=== PATIENT | male | born 1940 | race Caucasian/White ===

== ENCOUNTER → 2017-12-29 | Outpatient (CLI) | payer MEDICARE, OTHER ==
[~2017-12-29] MED LIST: Cipro500 MG PO; DOXY100 PO; LEVCAR2510; METR500 PO; NYST100TC TOP; PRAM.5; RIFA300 PO; ROCEPHIN IV; TAMS.4ER PO
[2017-12-29 18:01] LABS: BASOPHILS ABSOLUTE AUTO 0.03 K/mm3 (0.00-0.23); BASOPHILS PERCENT AUTO 1 % (0-2); EOSINOPHILS ABSOLUTE AUTO 0.05 K/mm3 (0.00-0.68); EOSINOPHILS PERCENT AUTO 1 % (0-6); Hematocrit 41.7 % (37.0-53.0); Hemoglobin 13.7 g/dL (13.5-17.5); IMMATURE GRAN ABSOLUTE AUTO 0.02 K/mm3 (0.00-0.10); IMMATURE GRAN PERCENT AUTO 0 % (0-1); LYMPHOCYTES ABSOLUTE AUTO 1.39 K/mm3 (0.84-5.20); LYMPHOCYTES PERCENT AUTO 24 % (21-46); MONOCYTES ABSOLUTE AUTO 0.45 K/mm3 (0.16-1.47); MONOCYTES PERCENT AUTO 8 % (4-13); Mean Corpuscular HGB Conc 32.9 g/dL (31.5-36.5); Mean Corpuscular Volume 91 fL (80-100); Mean Platelet Volume 9.9 fL (9.1-12.4); NEUTROPHILS ABSOLUTE AUTO 3.93 K/mm3 (1.96-9.15); NEUTROPHILS PERCENT AUTO 67 % (41-73); Platelet Count 254 K/mm3 (150-400); RDW Coefficient Variation 12.9 % (11.7-14.2); Red Blood Cell Count 4.57 M/mm3 (4.30-5.90); White Blood Cell Count 5.87 K/mm3 (4.00-11.30)
[2017-12-29 19:56] LABS: Alanine Aminotransfer (ALT/SGP 9 U/L (12-78); Albumin, Blood 3.7 g/dL (3.4-5.0); Albumin/Globulin Ratio 1.3 (0.8-1.8); Alk Phos 50 U/L (50-136); Anion Gap 10 mmol/L (6-16); Aspartate Aminotrans (AST/SGOT 17 U/L (12-37); Bilirubin, Total 0.8 mg/dL (0.1-1.0); Blood Urea Nitrogen 14 mg/dL (8-24); Bun/Creatinine Ratio 15.7 (12.0-20.0); CO2, Blood 27 mmol/L (21-32); Calcium, Blood 9.4 mg/dL (8.5-10.1); Chloride, Blood 104 mmol/L (98-108); Creatinine, Blood 0.89 mg/dL (0.60-1.20); Globulin, Blood 2.9 g/dL (2.2-4.0); Glomerular Filtration Rate >60 (60-); Glucose, Blood 128 mg/dL (70-99); Potassium, Blood 4.2 mmol/L (3.5-5.5); Sodium, Blood 141 mmol/L (136-145); Total Protein, Blood 6.6 g/dL (6.4-8.2)
[2017-12-29 20:12] LABS: Free Thyroxine 1.17 ng/dL (0.70-1.60); Thyroid Stimulating Hormone 3.9 uIU/mL (0.360-4.800)
== END | disposition home or self-care (01) ==
LOC: LAB SHORT 15:30 → LAB 15:30
PROVIDERS: Nurse Practitioner Adult Health
DX: E03.9 Hypothyroidism, unspecified (principal); G20 Parkinson's disease; Z73.6 Limitation of activities due to disability
CPT/HCPCS: 80053; 84439; 84443; 85025

== ENCOUNTER → 2019-08-02 | Outpatient (CLI) | payer MEDICARE, OTHER ==
[2019-08-02 18:06] LABS: BASOPHILS ABSOLUTE AUTO 0.02 K/mm3 (0.00-0.23); BASOPHILS PERCENT AUTO 0 % (0-2); EOSINOPHILS ABSOLUTE AUTO 0.04 K/mm3 (0.00-0.68); EOSINOPHILS PERCENT AUTO 1 % (0-6); Hematocrit 44.5 % (37.0-53.0); Hemoglobin 14.3 g/dL (13.5-17.5); IMMATURE GRAN ABSOLUTE AUTO 0.01 K/mm3 (0.00-0.10); IMMATURE GRAN PERCENT AUTO 0 % (0-1); LYMPHOCYTES PERCENT AUTO 29 % (21-46); MONOCYTES ABSOLUTE AUTO 0.66 K/mm3 (0.16-1.47); MONOCYTES PERCENT AUTO 11 % (4-13); Mean Corpuscular HGB 31.2 pg (26.0-34.0); Mean Corpuscular HGB Conc 32.1 g/dL (31.5-36.5); Mean Corpuscular Volume 97 fL (80-100); Mean Platelet Volume 10.3 fL (9.1-12.4); NEUTROPHILS ABSOLUTE AUTO 3.52 K/mm3 (1.96-9.15); NEUTROPHILS PERCENT AUTO 59 % (41-73); Platelet Count 264 K/mm3 (150-400); RDW Standard Deviation 45.7 fL (35.1-46.3); Red Blood Cell Count 4.58 M/mm3 (4.30-5.90); White Blood Cell Count 5.95 K/mm3 (4.00-11.30)
[2019-08-02 19:29] LABS: Alanine Aminotransfer (ALT/SGP 11 U/L (12-78); Albumin/Globulin Ratio 1.1 (0.8-1.8); Alk Phos 60 U/L (50-136); Anion Gap 6 mmol/L (6-16); Aspartate Aminotrans (AST/SGOT 21 U/L (12-37); Bilirubin, Total 0.9 mg/dL (0.1-1.0); Blood Urea Nitrogen 12 mg/dL (8-24); Bun/Creatinine Ratio 15.4 (12.0-20.0); CO2, Blood 27 mmol/L (21-32); Calcium, Blood 9.4 mg/dL (8.5-10.1); Chloride, Blood 100 mmol/L (98-108); Creatinine, Blood 0.78 mg/dL (0.60-1.20); Globulin, Blood 3.6 g/dL (2.2-4.0); Glomerular Filtration Rate >60 (60-); Glucose, Blood 85 mg/dL (70-99); Potassium, Blood 4.1 mmol/L (3.5-5.5); Sodium, Blood 133 mmol/L (136-145); Total Protein, Blood 7.6 g/dL (6.4-8.2)
== END | disposition home or self-care (01) ==
LOC: LAB 16:43 → LAB SHORT 16:43
PROVIDERS: Nurse Practitioner Family
DX: G20 Parkinson's disease (principal); E03.9 Hypothyroidism, unspecified; N40.0 Benign prostatic hyperplasia without lower urinary tract symptoms
CPT/HCPCS: 80053; 84153; 84439; 84443; 85025

== ENCOUNTER 2020-04-25 11:26 | Inpatient (IN) | payer MEDICARE, OTHER ==
[~2020-04-25] VITALS: Ht 182.9 cm; Wt 72.8 kg
[~2020-04-25 11:26] MED LIST changes: -LEVCAR2510; +SINEMET 25-1001 EAC1 PO
[2020-04-25 11:57] LABS: BASOPHILS ABSOLUTE AUTO 0.01 K/mm3 (0.00-0.23); BASOPHILS PERCENT AUTO 0 % (0-2); EOSINOPHILS PERCENT AUTO 0 % (0-6); Hematocrit 45.8 % (37.0-53.0); Hemoglobin 14.9 g/dL (13.5-17.5); IMMATURE GRAN ABSOLUTE AUTO 0.03 K/mm3 (0.00-0.10); IMMATURE GRAN PERCENT AUTO 0 % (0-1); LYMPHOCYTES ABSOLUTE AUTO 1.16 K/mm3 (0.84-5.20); LYMPHOCYTES PERCENT AUTO 17 % (21-46); MONOCYTES ABSOLUTE AUTO 0.67 K/mm3 (0.16-1.47); MONOCYTES PERCENT AUTO 10 % (4-13); Mean Corpuscular HGB 29.9 pg (26.0-34.0); Mean Corpuscular HGB Conc 32.5 g/dL (31.5-36.5); Mean Corpuscular Volume 92 fL (80-100); Mean Platelet Volume 9.8 fL (9.1-12.4); NEUTROPHILS ABSOLUTE AUTO 5.03 K/mm3 (1.96-9.15); NEUTROPHILS PERCENT AUTO 73 % (41-73); Platelet Count 253 K/mm3 (150-400); RDW Coefficient Variation 12.9 % (11.7-14.2); RDW Standard Deviation 43.6 fL (35.1-46.3); Red Blood Cell Count 4.99 M/mm3 (4.30-5.90)
[2020-04-25 12:11] LABS: Alanine Aminotransfer (ALT/SGP 12 U/L (12-78); Albumin, Blood 3.4 g/dL (3.4-5.0); Albumin/Globulin Ratio 0.8 (0.8-1.8); Alk Phos 77 U/L (50-136); Anion Gap 9 mmol/L (6-16); Aspartate Aminotrans (AST/SGOT 54 U/L (12-37); Bilirubin, Total 0.7 mg/dL (0.1-1.0); Blood Urea Nitrogen 23 mg/dL (8-24); Bun/Creatinine Ratio 31.5 (12.0-20.0); CO2, Blood 24 mmol/L (21-32); Calcium, Blood 9.5 mg/dL (8.5-10.1); Chloride, Blood 108 mmol/L (98-108); Creatinine, Blood 0.73 mg/dL (0.60-1.20); Globulin, Blood 4.2 g/dL (2.2-4.0); Glomerular Filtration Rate >60 (60-); Glucose, Blood 96 mg/dL (70-99); Potassium, Blood 4.1 mmol/L (3.5-5.5); Sodium, Blood 141 mmol/L (136-145); Total Protein, Blood 7.6 g/dL (6.4-8.2)
[2020-04-25] MEDS ORDERED: EUTHYROX50 MCG PT (12:53)
[2020-04-25] MEDS ORDERED: PRAM.5 PT (12:54)
[2020-04-25 15:25] LABS: Source, Urine Catheter
[2020-04-25 15:52] LABS: Appearance, Urine Turbid (Clear); Bilirubin, Urine Neg (Neg); Blood, Urine 5+ (Neg); Color, Urine Amber (P-Yellow); Glucose Qualitative, Urine Neg (Neg); Ketones, Urine 4+ (Neg); Leukocyte Esterase, Urine 3+ (Neg); Nitrite, Urine Pos (Neg); Protein, Urine 4+ (Neg); Specific Gravity, Urine 1.025 (1.003-1.022); Urobilinogen, Urine 1+ (Normal)
[2020-04-25 16:02] LABS: Mucus Light (0-Heavy); Red Blood Cells, Urine TNTC /hpf (0-2); White Blood Cells, Urine TNTC /hpf (0-5)
[2020-04-25 16:03] LABS: Bacteria Many /hpf; Squamous Epithelial Cells Few /hpf (Few)
[2020-04-25] MEDS ORDERED: CARBIDOPA-LEVO1 EA17 PO (17:27)
[2020-04-25] MEDS ORDERED: CARBIDOPA-LEVO1 EA15 PO (17:28)
--- NOTE | 2020-04-25 18:56 | NUR ---
REPORT TAKEN FROM LUCY ALFARO RN IN THE ED. SHIFT REPORT THEN PROVIDED TO MUKUND GARCIA ON MEDICAL FLOOR @ SHIFT CHANGE PRIOR TO PT ARRIVAL. HELPED PT GET SITUATED IN ROOM WHILE KETAN FINISHED RECIEVING SHIFT REPORTS.
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
--- NOTE | 2020-04-26 03:35 | NUR ---
SHIFT SUMMARY HAS BEEN RESTING QUIETLY, WITH SON IN ROOM. NG TUBE IN USE, WITH CONTINUOUS TUBE FEEDING AND WATER FLUSHES - SEE DOC FLOW SHEETS. RECEIVING MEDICATION VIA NG TUBE ABOUT EVERY 3 HRS - SEE MAR FOR DETAILS. HOB ELEVATED FOR ASPIRATION PRECAUTIONS. REPOSITOINED EVERY 2 HRS. CALL LIGHT IN REACH/ SON WAS INSTRUCTED ON HOW TO USE IT. ISOLATION PREACUTIONS MAINTAINED.
[2020-04-26 05:41] LABS: BASOPHILS ABSOLUTE AUTO 0.01 K/mm3 (0.00-0.23); BASOPHILS PERCENT AUTO 0 % (0-2); EOSINOPHILS ABSOLUTE AUTO 0.01 K/mm3 (0.00-0.68); EOSINOPHILS PERCENT AUTO 0 % (0-6); Hematocrit 43.8 % (37.0-53.0); Hemoglobin 14.5 g/dL (13.5-17.5); IMMATURE GRAN ABSOLUTE AUTO 0.03 K/mm3 (0.00-0.10); IMMATURE GRAN PERCENT AUTO 1 % (0-1); LYMPHOCYTES ABSOLUTE AUTO 0.83 K/mm3 (0.84-5.20); LYMPHOCYTES PERCENT AUTO 14 % (21-46); MONOCYTES ABSOLUTE AUTO 0.62 K/mm3 (0.16-1.47); MONOCYTES PERCENT AUTO 11 % (4-13); Mean Corpuscular HGB 30.3 pg (26.0-34.0); Mean Corpuscular HGB Conc 33.1 g/dL (31.5-36.5); Mean Corpuscular Volume 92 fL (80-100); Mean Platelet Volume 9.8 fL (9.1-12.4); NEUTROPHILS ABSOLUTE AUTO 4.39 K/mm3 (1.96-9.15); NEUTROPHILS PERCENT AUTO 75 % (41-73); Platelet Count 237 K/mm3 (150-400); RDW Coefficient Variation 12.9 % (11.7-14.2); RDW Standard Deviation 43.7 fL (35.1-46.3); Red Blood Cell Count 4.78 M/mm3 (4.30-5.90); White Blood Cell Count 5.89 K/mm3 (4.00-11.30)
[2020-04-26 06:03] LABS: Anion Gap 8 mmol/L (6-16); Blood Urea Nitrogen 24 mg/dL (8-24); Bun/Creatinine Ratio 37.9 (12.0-20.0); CO2, Blood 24 mmol/L (21-32); Calcium, Blood 9.3 mg/dL (8.5-10.1); Chloride, Blood 106 mmol/L (98-108); Creatinine, Blood 0.63 mg/dL (0.60-1.20); Glomerular Filtration Rate >60 (60-); Glucose, Blood 119 mg/dL (70-99); Phosphorus, Blood 2.8 mg/dL (2.5-4.9); Potassium, Blood 3.6 mmol/L (3.5-5.5); Sodium, Blood 138 mmol/L (136-145)
[2020-04-26] MEDS ORDERED: CARBLEV25 PT (07:27)
--- NOTE | 2020-04-26 10:07 | NUR ---
TUBE FEED INCREASED TO 40ML/HR, WILL ADJUST TO GOAL RATE OF 50ML/HR IN 8 HOURS IF PT TOLERATES. H20 RUNNING AT 30ML Q4H AT THIS TIME.
--- NOTE | 2020-04-26 17:50 | NUR ---
SHIFT SUMMARY PT HAS BEEN RESTING T/O SHIFT AND NONAROUSABLE. TREMOR SEEMS TO BE WORSE THE DAY GOES ON. NG TUBE IS INSERTED WITH CONTINUOUS TUBE FEEDINGS GOING AT 50 ML/HR WITH 30 CC FLUSHES Q4H. MEDS ARE ADMINISTERED THROUGH TUBE. PT WAS BEGINNING TO COUGH UP SOME PHLEGM @ 1800 AND REQUIRED SUCTION, PT DID START TO BECOME ARROUSED AT THIS TIME. TREMOR ALSO WAS LESS NOTICEABLE AT THIS TIME WELL. SON IS AT BED SIDE AND INSTRUCTED ON HOW TO USE CALL LIGHT. PROVIDER IS WATCHING BP. PT IS NOT TYPICALLY ON BP MEDICATIONS AND SHE SUSPECTS WITH THE TREMOR THAT WE ARE GETTING AN INACCURATE READING.
--- NOTE | 2020-04-27 01:11 | NUR ---
PTS SON AT SIDE FOR NIGHT AND VERY SUPPORTIVE.
--- NOTE | 2020-04-27 02:48 | NUR ---
0215 PT GIVEN SCHEDULED MEDS VIA NGT TUBE WITH 20ML RESIDUAL; PT NOTICED HAVE AUDIBLE GURGLING NOISE UPPER THROAT; PT SUCTIONED LARGE AMOUNT THICK YELLOW MUCOUS; PT NON RESPONSIVE; VITAL SIGNS STABLE; JEVITY TUBE FEEDING TURNED OFF AND IV RATE SLOWED TO 25ML/HR; SUKHI VOGEL, RN, CHARGE NURSE AT SIDE; PT RESTING HIGH FOWLERS. 0240 DR BALES NOTIFIED ALL THE ABOVE; ORDERS RECEIVED TO TURN OFF JEVITY FEEDING NOW AND PORTABLE CXR ONE VIEW STAT. 0250 XR AT SIDE.
--- NOTE | 2020-04-27 03:12 | NUR ---
SHIFT SUMMARY: 79 Y/O MALE HAD RESTLESS SHIFT AT TIMES; PTS JEVITY TUBE FEEDING VIA NGT WAS SHUT DOWN 214 AFTER PT STARTED HAVING LOUD THROAT GURGLING AND LARGE AMOUNT YELLOW THICK PHELGM VIA SUCTION; DR BALES WAS NOTIFIED AND PORTABLE CXR WAS PERFORMED; PT SON--BLANKA AT SIDE AND WAS INFORMED THIS NURSE ASSESSMENT AND UPDATED ON DADS CURRENT HEALTH SITUATION; PT IS FULL CODE; PT HAD LESS THAN 20ML RESIDUAL NOTED AT 214; PT IS NON RESPONSIVE AND NON VERBAL; FRIEND INTACT CLEAR YELLOW FLUID; BED IN SEMI FOWLERS POSITION; BED ALARM APPLIED, BED LOW POSITION WITH CALL LIGHT AT SIDE.
[2020-04-27 05:24] LABS: BASOPHILS ABSOLUTE AUTO 0.01 K/mm3 (0.00-0.23); BASOPHILS PERCENT AUTO 0 % (0-2); EOSINOPHILS PERCENT AUTO 0 % (0-6); Hematocrit 42.7 % (37.0-53.0); Hemoglobin 13.5 g/dL (13.5-17.5); IMMATURE GRAN ABSOLUTE AUTO 0.02 K/mm3 (0.00-0.10); IMMATURE GRAN PERCENT AUTO 0 % (0-1); LYMPHOCYTES ABSOLUTE AUTO 1.12 K/mm3 (0.84-5.20); LYMPHOCYTES PERCENT AUTO 17 % (21-46); MONOCYTES ABSOLUTE AUTO 0.57 K/mm3 (0.16-1.47); MONOCYTES PERCENT AUTO 9 % (4-13); Mean Corpuscular HGB 29.2 pg (26.0-34.0); Mean Corpuscular HGB Conc 31.6 g/dL (31.5-36.5); Mean Corpuscular Volume 92 fL (80-100); Mean Platelet Volume 9.9 fL (9.1-12.4); NEUTROPHILS ABSOLUTE AUTO 4.72 K/mm3 (1.96-9.15); NEUTROPHILS PERCENT AUTO 73 % (41-73); Platelet Count 237 K/mm3 (150-400); RDW Standard Deviation 43.9 fL (35.1-46.3); Red Blood Cell Count 4.63 M/mm3 (4.30-5.90); White Blood Cell Count 6.44 K/mm3 (4.00-11.30)
[2020-04-27 05:54] LABS: Albumin, Blood 2.7 g/dL (3.4-5.0); Anion Gap 8 mmol/L (6-16); Blood Urea Nitrogen 23 mg/dL (8-24); Bun/Creatinine Ratio 45.5 (12.0-20.0); CO2, Blood 23 mmol/L (21-32); Calcium, Blood 8.7 mg/dL (8.5-10.1); Chloride, Blood 110 mmol/L (98-108); Creatinine, Blood 0.51 mg/dL (0.60-1.20); Glomerular Filtration Rate >60 (60-); Glucose, Blood 118 mg/dL (70-99); Magnesium, Blood 1.8 mg/dL (1.6-2.4); Phosphorus, Blood 2.2 mg/dL (2.5-4.9); Potassium, Blood 3.5 mmol/L (3.5-5.5); Sodium, Blood 141 mmol/L (136-145)
--- NOTE | 2020-04-27 19:15 | NUR ---
SHIFT SUMMARY VICENTE WAS MUCH MORE SLEEPY THIS MORNING, BUT WOKE UP A LOT MORE AROUND LUNCH. OPENED EYES, ANSWERED QUESTIONS, THOUGH THIS WAS VERY DIFFICULT TO UNDERSTAND DUE TO SLURRED SPEECH. SON AT BEDSIDE ALL DAY. HAD TWO BM THIS SHIFT (INCONTINENT). SAW JOB HONER BUT NOT ABLE TO GET HIM ON A PO DIET. SOME GURGLING AT THE BACK OF HIS THROAT, VP ANALYSIS ABLE TO USE YANKAUR FOR SUCTION, BUT HE DECLINED FOR ME. CRUSHED PILLS AND PUT IN NGT, CONTINUOUS TF RUNNING SINCE 9AM. FRIEND DRAINING WELL, Q2 TURNS PERFORMED. DENIED PAIN.
[2020-04-28 02:41] LABS: Albumin, Blood 2.6 g/dL (3.4-5.0); Anion Gap 2 mmol/L (6-16); Blood Urea Nitrogen 21 mg/dL (8-24); Bun/Creatinine Ratio 42.6 (12.0-20.0); CO2, Blood 31 mmol/L (21-32); Chloride, Blood 110 mmol/L (98-108); Creatinine, Blood 0.49 mg/dL (0.60-1.20); Glomerular Filtration Rate >60 (60-); Glucose, Blood 121 mg/dL (70-99); Phosphorus, Blood 2.5 mg/dL (2.5-4.9); Potassium, Blood 3.8 mmol/L (3.5-5.5); Sodium, Blood 143 mmol/L (136-145); Vancomycin, Trough 9.4 ug/mL (5.0-10.0)
--- NOTE | 2020-04-28 04:54 | NUR ---
SHIFT SUMMARY ADMITTED FOR LOCKED IN SYNDROME. FULL CODE. PLAN IS FOR REMOVAL OF NG TUBE WHEN CAN TOLERATE ORAL FEEDINGS, THEN DC HOME. CHRONIC FRIEND FOR RETENTION. CARBIDOPA/LEVIDOPA GIVEN Q3 HRS. FAILED SWALLOW EVAL, NPO, NG TUBE FOR MEDS AND FEEDINGS. 2 LOOSE BM'S YESTERDAY, BOWEL CARE HELD. INCONTINENT, ATTENDS IN PLACE. WALKS W/FWW AT BASELINE. COMMUNICATES WITH FAMILY AT BASELINE. ONE WORD MUMBLED ANSWERS THIS SHIFT, STILL NOT TO BASELINE MENTALLY. CONTINUOUS TUBE FEEDING, NS INFUSING @ 50ML/HR. IV ANTIBIOTICS SCHEDULED FOR UTI.
--- NOTE | 2020-04-28 10:00 | NUR ---
INFORMED DR MOTT OF BP OF 160/100, HE SAYS HE WILL ORDER BP MEDS
--- NOTE | 2020-04-28 19:13 | NUR ---
AWAKE IN BED, WITH WIEF AND SON AT BEDSIDE. SITTING UP, SMILING AND MAKES A FEW STATEMENTS. NG TUBE IN USE - TUBE FEEDING AT 50 ML/HR. CALL LIGHT IN REACH
--- NOTE | 2020-04-28 19:25 | NUR ---
SHIFT SUMMARY AL GOT UP WITH AO2 TO CHAIR TODAY WITH PT. NGT RUNNING AT 50ML/HR WITH WATER FLUSHES SCHEDULED, NO RESIDUALS AT ALL TODAY. FRIEND DRAINING WELL. AND SON VISITED. 1 INCONTINENT BM TODAY, ONE BM ON BED DALE. HOB MAINTAINED AT 30 DEGREES FOR TF. SAW SPEECH, THEY WILL ASSESS AGAIN TOMORROW, BUT NOT CLEARED FOR ANY PO THIS SHIFT. SUCTIONED OUT SECRETIONS, PT CAN COUGH UP BUT CANNOT SPIT OUT/SWALLOW. DENIED PAIN. MEDS CRUSHED IN TUBE. REPORT GIVEN TO NIGHT NURSE
[2020-04-29 02:18] LABS: Vancomycin, Trough 14.8 ug/mL (5.0-10.0)
--- NOTE | 2020-04-29 03:01 | NUR ---
SHIFT SUMMARY WAS MORE INTERACTIVE WITH STAFF AT SHIFT COMMENCE, BUT LATER, SEEMED ANNOYED WITH STAFF, WANTING TO "LEAVE". SON AT BEDSIDE VOICED PT HAS HX OF THIS BEHAVIOR - POSSIBLY DUE TO MEDS TAKEN. LATER PT SEEMED TO CALM AND WAS MORE RECEPTIVE TO CARE. TUBE FEEDING CONTINUES WITH INTERMITTENT H2O FLUSHES. IVF OF NS AT 50 ML AND ANTIBIOTICS ORDERED -SEE MAR FOR DETAILS. CALL LIGHT IN REACH. SON REMAINS IN ROOM.
--- NOTE | 2020-04-29 17:39 | NUR ---
SUMMARY PT SITTING UP IN BED, VISITING WITH HIS SPOUSE, PT MORE AWAKE AND ALERT THIS EVENING, ABLE TO ANSWER SIMPLE QUESTIONS APPROPRIATELY, SPEECH IS VERY SOFT AND SOMETIMES DIFFICULT TO UNDERSTAND, SON WAS IN TO VISIT AND ASSIST WITH HIS CARE EARLIER IN THE DAY, PT REMAINS ON TUBE FEEDING, IS TOLERATING WELL, PT NOW ABLE TO SUCTION SELF WHEN GIVEN THE YANKHAUER, PT WORKED WITH PHYSICAL THERAPY, TRAVIS WELL, VSS, WILL CONT TO MONITOR
--- NOTE | 2020-04-29 21:12 | NUR ---
AWAKE AND SHAKING (PARKINSONS S/S), TUBE FEEDING CONTINUSE PER MD ORDERS AT 50 CC/HR WITH WATER FLUSHES. SEEMED TENSE AND BECAME AGITATED WHEN ASSESSED. SON WAS IN ROOM, AND CALMED PT. SON STAED PT HAD SOME REST IN THE DAY TIME AND WAS PROBABLY ETTING TIRED AGAIN. CALL LIGHT IN REACH
[2020-04-30 05:36] LABS: Hematocrit 42.8 % (37.0-53.0); Hemoglobin 14.1 g/dL (13.5-17.5); Mean Corpuscular HGB 29.7 pg (26.0-34.0); Mean Corpuscular HGB Conc 32.9 g/dL (31.5-36.5); Mean Corpuscular Volume 90 fL (80-100); Mean Platelet Volume 9.7 fL (9.1-12.4); Platelet Count 228 K/mm3 (150-400); RDW Coefficient Variation 12.6 % (11.7-14.2); RDW Standard Deviation 41.9 fL (35.1-46.3); Red Blood Cell Count 4.74 M/mm3 (4.30-5.90)
--- NOTE | 2020-04-30 05:54 | NUR ---
SHIFT SUMMARY CONTINUES TO DISPLAY MORE ACTIVE BEHAVIOR - SHAKING OF ARMS, LIFTING OF LEFT ARM/HAND. NG TUBE PINNED TO PILLOW CASE TO KEEP OUT OF HIS REACH TO PREVENT HIS PULLING IT OUT. INTERMITTENT AGITATION AIMED AT STAFF FOR REPOSITIONING HIM, ADMINISTERING HIS MEDS, ETC. NG CONTINUOUS TUBE FEEDING WITH WATER BOLUS' PER MD ORDERS. FRIEND DRAINING ANA/YELLOW. HOB REMAINS ELEVATED OVER 30 DEGREES FOR ASPIRATION PRECAUTIONS. CALL LIGHT IN REACH. ANIKA CHAPAINS AT BEDSIDE FOR PT MORAL SUPPORT.
[2020-04-30 06:00] LABS: Anion Gap 10 mmol/L (6-16); Blood Urea Nitrogen 16 mg/dL (8-24); Bun/Creatinine Ratio 34.1 (12.0-20.0); CO2, Blood 25 mmol/L (21-32); Calcium, Blood 8.6 mg/dL (8.5-10.1); Chloride, Blood 108 mmol/L (98-108); Creatinine, Blood 0.47 mg/dL (0.60-1.20); Glomerular Filtration Rate >60 (60-); Glucose, Blood 122 mg/dL (70-99); Potassium, Blood 2.9 mmol/L (3.5-5.5); Sodium, Blood 143 mmol/L (136-145)
--- NOTE | 2020-04-30 17:18 | NUR ---
SUMMARY PT AWAKE IN BED, RESTLESS, VISITING WITH HIS SON, PT HAS SLEPT FOR MOST OF THE DAY, IS NOW AWAKE AND AGITATED, PT CONT TO GET TUBE FEEDING, TRAVIS WELL, VSS, WILL CONT TO MONITOR
--- NOTE | 2020-04-30 21:47 | NUR ---
HOB REMAINS ELEVATED OVER 40 DEGREES FOR ASPIRATION PRECAUTIONS. SUCTIONED AND ORAL CARE DONE. IVF OF NS AT 50 ML/HR AND TUBE FEEDING PER NG TUBE CONTINUES AT 50 ML/HR. SON AT BEDSIDE. REST ENCOURAGED. REPOSITIONED. CALL LIGHT IN REACH
[2020-05-01 02:01] LABS: Hematocrit 41.6 % (37.0-53.0); Hemoglobin 13.5 g/dL (13.5-17.5); Mean Corpuscular HGB 29.7 pg (26.0-34.0); Mean Corpuscular HGB Conc 32.5 g/dL (31.5-36.5); Mean Corpuscular Volume 92 fL (80-100); Mean Platelet Volume 9.5 fL (9.1-12.4); Platelet Count 297 K/mm3 (150-400); RDW Coefficient Variation 12.5 % (11.7-14.2); RDW Standard Deviation 42.3 fL (35.1-46.3); Red Blood Cell Count 4.54 M/mm3 (4.30-5.90); White Blood Cell Count 7.26 K/mm3 (4.00-11.30)
[2020-05-01 02:19] LABS: Vancomycin, Trough 16.8 ug/mL (5.0-10.0)
[2020-05-01 02:36] LABS: Albumin, Blood 2.4 g/dL (3.4-5.0); Anion Gap 4 mmol/L (6-16); Blood Urea Nitrogen 19 mg/dL (8-24); Bun/Creatinine Ratio 41.7 (12.0-20.0); CO2, Blood 30 mmol/L (21-32); Calcium, Blood 9.2 mg/dL (8.5-10.1); Chloride, Blood 106 mmol/L (98-108); Creatinine, Blood 0.46 mg/dL (0.60-1.20); Glomerular Filtration Rate >60 (60-); Glucose, Blood 124 mg/dL (70-99); Phosphorus, Blood 3.2 mg/dL (2.5-4.9); Sodium, Blood 140 mmol/L (136-145)
--- NOTE | 2020-05-01 05:29 | NUR ---
HAS BEEN RESTING QUIETLY AT INTERVALS SINCE HAVING HAD MELATONIN AT HS. TUBE FEEDING CONTINUES AT 50 ML/HR AND IVF OF NS CONTINUES AT 50 ML/HR WITH ANTIBIOTICS PER MD ORDERS - SEE MAR FOR DETAILS. CALL LIGHT IN REACH. SON AT BEDSIDE.
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
--- NOTE | 2020-05-02 04:35 | NUR ---
SHIFT SUMMARY ADMITTED FOR LOCKED IN SYNDROME. FULL CODE. PLAN IS PLACEMENT IN 2-3 DAYS POSSIBLY. NG TUBE IN PLACE, FEEDING JEVITY @ 55 ML/HR. NS INFUSING VIA IV @ 50 ML/HR. CHRONIC FRIEND IN FOR RETENTION. NPO, ALL MEDS VIA NG TUBE OR IV. CARBIDOPA/LEVIDOPA Q3 HRS. HX PARKINSONS/TREMORS. PT IS MORE ALERT THIS EVENING THAN ON MY PREVIOUS SHIFTS WITH HIM, HE ATTEMPTS TO VERBALIZE MORE. LIQUID BM'S YESTERDAY, BOWEL CARE HELD.
[2020-05-02 05:53] LABS: BASOPHILS ABSOLUTE AUTO 0.02 K/mm3 (0.00-0.23); BASOPHILS PERCENT AUTO 0 % (0-2); EOSINOPHILS ABSOLUTE AUTO 0.06 K/mm3 (0.00-0.68); EOSINOPHILS PERCENT AUTO 1 % (0-6); Hematocrit 43.1 % (37.0-53.0); Hemoglobin 13.8 g/dL (13.5-17.5); IMMATURE GRAN ABSOLUTE AUTO 0.05 K/mm3 (0.00-0.10); IMMATURE GRAN PERCENT AUTO 1 % (0-1); LYMPHOCYTES ABSOLUTE AUTO 1.21 K/mm3 (0.84-5.20); LYMPHOCYTES PERCENT AUTO 14 % (21-46); MONOCYTES ABSOLUTE AUTO 0.78 K/mm3 (0.16-1.47); MONOCYTES PERCENT AUTO 9 % (4-13); Mean Corpuscular HGB 29.2 pg (26.0-34.0); Mean Corpuscular Volume 91 fL (80-100); Mean Platelet Volume 10.2 fL (9.1-12.4); NEUTROPHILS ABSOLUTE AUTO 6.33 K/mm3 (1.96-9.15); NEUTROPHILS PERCENT AUTO 75 % (41-73); Platelet Count 359 K/mm3 (150-400); RDW Coefficient Variation 12.7 % (11.7-14.2); RDW Standard Deviation 42.9 fL (35.1-46.3); Red Blood Cell Count 4.73 M/mm3 (4.30-5.90); White Blood Cell Count 8.45 K/mm3 (4.00-11.30)
[2020-05-02 06:06] LABS: Anion Gap 6 mmol/L (6-16); Blood Urea Nitrogen 21 mg/dL (8-24); Bun/Creatinine Ratio 45.6 (12.0-20.0); CO2, Blood 29 mmol/L (21-32); Calcium, Blood 9.4 mg/dL (8.5-10.1); Chloride, Blood 107 mmol/L (98-108); Creatinine, Blood 0.46 mg/dL (0.60-1.20); Glomerular Filtration Rate >60 (60-); Glucose, Blood 149 mg/dL (70-99); Potassium, Blood 2.9 mmol/L (3.5-5.5); Sodium, Blood 142 mmol/L (136-145)
--- NOTE | 2020-05-02 18:05 | NUR ---
PT IS A/OX3, PLEASANT AND COOPERATIVE FOR MOST OF THE DAY, THIS EVENINING THE PT BECAME AGITATED AND PULLED HIS NGT PARTIALY OUT, A CHEST X-RAY WAS ORDERED TO CONFIRM PLACEMENT, THE PT SON HAS BEEN AT THE BEDSIDE FOR MOST OF THE DAY, THE PTS WAS IN TO VISIT, THE PHYSICAL AND THE OCCUPATIONAL THERAPIST WORKED WITH THE PT TODAY, THE PT HAD OVER 150 IN RESIDUAL THIS EVENING AT 1700, THE TUBE FEED WAS STOPPED AND WILL RECHECK IN 2 HRS, THE PT HAD 2 LARGE LOOSE BM'S TODAY AND PASSED GAS, CALL LIGHT IN REACH, PT IS CALM AT THIS TIME WILL CONTINUE TO MONITOR AND ASSESS FOR CHANGES
--- NOTE | 2020-05-03 04:40 | NUR ---
SHIFT SUMMARY ASSUMED CARE OF PT AT 1900. PT IS ALERT AND ORIENTED TO FAMILY. HEART SOUNDS REGULAR, LUNG SOUNDS ARE DIMINISHED. PT NG TUBE WAS XRAYED AND PLACEMENT COMFIRMED BY HOSPITALIST SADIQ. TUBE FEEDING WAS RESUMED AND PATIENT TOLERATED WELL BUT HAVING NO RESIDUAL AFTER BEING CHECKED BEFOPRE EACH MEDICATION ADMINISTRATION. PT ABD IS STILL DISTENDED AND FIRM. PT HAD INCONTINENT SMALL LOOSE GAMALIEL AND PASSED LOTS OF GAS. PT CATHETER IS DRAINING DARK URINE. PT SON IS IN ROOM WITH PATIENT. NO ACUTE EVENTS DURING THE NIGHT. PT DID NOT SLEEP VERY MUCH DURING THE NIGHT. CALL LIGHT IN REACH, BED IN LOWEST POSTION, WILL CONTINUE TO MONITOR UNTIL DAYSHIFT NURSE ARRIVES.
[2020-05-03 05:55] LABS: Anion Gap 5 mmol/L (6-16); Blood Urea Nitrogen 25 mg/dL (8-24); Bun/Creatinine Ratio 48.8 (12.0-20.0); CO2, Blood 31 mmol/L (21-32); Calcium, Blood 9.3 mg/dL (8.5-10.1); Chloride, Blood 104 mmol/L (98-108); Creatinine, Blood 0.51 mg/dL (0.60-1.20); Glomerular Filtration Rate >60 (60-); Glucose, Blood 119 mg/dL (70-99); Potassium, Blood 2.9 mmol/L (3.5-5.5); Sodium, Blood 140 mmol/L (136-145)
--- NOTE | 2020-05-03 15:51 | NUR ---
PT IS MORE ALERT TODAY COMPARED TO YESTERDAY, SPEAKING MORE, PT IS RECIEVING TUBE FEEDING AND APPEARS TO BE TOLERATING IT WELL TODAY, PT DENIES PAIN, SPEECH THERAPIST WORKED WITH THE PT TODAY, THE PT REMAINS NPO, THE OCCUPATIONAL AND PHYSICAL THERAPIST BOTH WORKED WITH THE PT TODAY, THE PT WAS ABLE TO STAND FOR A SHORT TIME WITH ASSISTANCE, THE PT HAS BEEN SPITTING UP LARGE AMOUNTS OF THICK MUCUS, SUCTION IS AT THE BEDSIDE, THE PT APPEARS TO BE BREATHING EASILY, THE PTS WITH AND SON ARE AT THE BEDSIDE VISITING AT THIS TIME, CALL LIGHT IN REACH, WILL CONTINUE TO MONITOR AND ASSESS FOR CHANGES
--- NOTE | 2020-05-03 17:23 | NUR ---
Met with to review polst they agreed on no recusitation and limited treatment for level of care. polst dompleted and given to copy on chart and to medical records.
--- NOTE | 2020-05-04 02:35 | NUR ---
NG TUBE THIS RN WAS CALLED TO PT'S ROOM BY GUN STOCK MAKER BECAUSE PT'S NG TUBE HAD ACCIDENTLY BECOME DISLODGED. SERVER ENGINEER AN ONOFRE REINSERTED NG TUBE. AWAITING CONFIRMATION OF PLACEMENT BY XRAY.
[2020-05-04 05:01] LABS: Albumin, Blood 2.6 g/dL (3.4-5.0); Anion Gap 3 mmol/L (6-16); Blood Urea Nitrogen 21 mg/dL (8-24); Bun/Creatinine Ratio 37.9 (12.0-20.0); CO2, Blood 34 mmol/L (21-32); Calcium, Blood 9.3 mg/dL (8.5-10.1); Chloride, Blood 102 mmol/L (98-108); Creatinine, Blood 0.55 mg/dL (0.60-1.20); Glomerular Filtration Rate >60 (60-); Glucose, Blood 93 mg/dL (70-99); Phosphorus, Blood 3.5 mg/dL (2.5-4.9); Potassium, Blood 3.2 mmol/L (3.5-5.5); Sodium, Blood 139 mmol/L (136-145)
--- NOTE | 2020-05-04 05:49 | NUR ---
SHIFT SUMMARY PT DID NOT SLEEP WELL THIS EVENING. AWAKE THROUGH MOST OF THE NIGHT. SEVERE TREMORS THAT QUIET WHEN PT IS SLEEPING. PT ALERT THIS EVENING. APPEARS TO ONLY BE ORIENTED TO SELF AND TO FAMILY. SON IS AT BEDSIDE. SPEECH IS QUIET AND UNCLEAR. DIFFICULT TO UNDERSTAND. PT REMAINED IN BED. INCONTINENT OF STOOL. STOOL REPORTED TO BE LIQUID BY PODIATRIST ORTHOPEDIC. STOOL SOFTENERS HELD. URINE IS DARK AND APPEARS TO HAVE SOME BLOOD IN IT. UNCLEAR IF THIS IS NEW BUT HAS BEEN CLEARING THROUGH THE NIGHT. TUBE FEEDINGS RUNNING CONTINUOUSLY WHILE TUBE WAS IN PLACE AT 55 ML/HR WITH 215 ML WATER FLUSH Q 4 HOURS. NG TUBE PULLED OUT ACCIDENTLY DURING CARE. NEW NG TUBE PLACED BY EPIC ANESTHESIA ANALYST LISA. VERIFIED PLACEMENT BY CHEST XRAY READ BY DR. LIEBERMAN. FEEDINGS RESUMED AFTER VERIFICATION. PT DENIED ANY PAIN. PT DOES BECOME ANXIOUS AT TIMES, ESPECIALLY WHEN PROVIDING CARE. SON VERY SUPPORTIVE AND HELPS TO CALM PT. VITAL SIGNS STABLE. WILL CONTINUE TO MONITOR.
[2020-05-04 15:03] LABS: Source, Urine Catheter
--- NOTE | 2020-05-04 15:10 | NUR ---
SHIFT NOTE PATIENT WITH MUCH TREMORS; SON STATES IT'S NORMAL FOR PATIENT. CONTINUES ON CONTINUOUS FEEDS VIA NG TUBE. PATIENT REMAINS NPO AND ALL MEDS ARE ADMINITERED VIA NG TUBE OR VIA IV. PATIENT HAS GARBLED SPEECH; VERY DIFFICULT TO UNDERSTAND. PATIENT SAT UPRIGHT IN RECLINER FOR ABOUT 4 HOURS TODAY AND TWO STAFF MEMBERS ASSISTED THE PATIENT BACK INTO BED HE APPEARED VERY TIRED. UA COLLECTED AND SENT TO LAB AFTER CHANGING FRIEND BAG. SON WAS AT BEDSIDE THIS MORNING AND IS AT BEDSIDE AT THIS TIME. PATIENT TOLERATING TUBE FEEDS AT 55ML/HR. PATIENT RESTING IN BED AT THIS TIME. WILL CONTINUE TO MONITOR AND PROVIDE CARE NEEDED.
[2020-05-04 15:18] LABS: Appearance, Urine Bloody (Clear); Bilirubin, Urine Neg (Neg); Blood, Urine 5+ (Neg); Color, Urine Red (P-Yellow); Glucose Qualitative, Urine Neg (Neg); Ketones, Urine 2+ (Neg); Leukocyte Esterase, Urine 1+ (Neg); Nitrite, Urine Neg (Neg); Protein, Urine 3+ (Neg); Specific Gravity, Urine 1.015 (1.003-1.022); Urobilinogen, Urine NORM (Normal)
[2020-05-04 15:20] LABS: Bacteria Mod /hpf; Mucus Light (0-Heavy); Red Blood Cells, Urine TNTC /hpf (0-2); Squamous Epithelial Cells Not Seen /hpf (Few); Uric Acid Crystals Mod /hpf
--- NOTE | 2020-05-04 17:52 | NUR ---
WENT INTO PATIENT'S ROOM AT APPROX 1700 TO ADMINISTER 1600 & 1700 MEDICATIONS AND TO CHANGE OUT TUBE FEEDING SET-UP. NOTICED PATIENT'S NG TUBE HAD BEEN PULLED ABOUT HALF WAY OUT. I ATTEMPTED TO RE-INSERT THE TUBE HOWEVER IT COILED INSIDE PATIENTS MOUTH. HAD A DISCUSSION WITH PATIENT AND SON AND DECIDED SHE WANTED TO HOLD OFF ON REPLACING THE TUBE UNTIL AFTER ANOTHER SPEECH EVALUATION TOMORROW; SHE BELIEVES THE PATIENT HAS PROGRESSED A LOT SINCE THIS MORNING AND WILL BE ABLE TO EAT AND DRINK ON HIS OWN. CALLED DR MOTT @ 1745 AND INFORMED HIM OF THE SITUATION AND HE SAID TO PLACE PATIENT ON CLINIMIX @ 75/HR. ORDERS PLACED. JUST RECEIEVED A CALL FROM PHARMACY STATING THAT CLINIMIX IS ON SHORTAGE AND ONLY BEING USED FOR PATIENTS ON TPN. i CALLED DR MOTT BACK AT 1700 TO UPDATE HIM ON THIS AND HE GAVE NEW ORDERS TO JUST INFUSE NS @ 75/HR.
--- NOTE | 2020-05-05 04:30 | NUR ---
SHIFT SUMMARY PT HAS RESTED MOST OF THE NIGHT. REMAINS WITHOUT NG TUBE PER FAMILY REQUEST. A RESULT HE HAS BEEN NPO, AND HAS NOT TAKEN HIS MEDICATIONS. MD MADE AWARE OF NG TUBE REMOVAL AND FAMILY REQUEST TO KEEP OUT. PENDING SWALLOW AND SPEECH EVAL TO DETERMINE NEXT COURSE OF ACTION. IV FLUIDS INFUSING ORDERED. FRIEND IN PLACE PATENT AND DRAINING. PT SON AT BEDSIDE T/O THE NIGHT SUPPORT PERSON. PT A/OX 1-2 WITH GARBLED SPEECH AND EXTENSIVE TREMORS. NO ACUTE CHANGES IN ASSESSMENT. BED IN LOWEST POSITION, CALL LIGHT WITHIN REACH.
[2020-05-05 05:30] LABS: Anion Gap 6 mmol/L (6-16); Blood Urea Nitrogen 20 mg/dL (8-24); Bun/Creatinine Ratio 34.4 (12.0-20.0); CO2, Blood 29 mmol/L (21-32); Calcium, Blood 8.6 mg/dL (8.5-10.1); Chloride, Blood 105 mmol/L (98-108); Creatinine, Blood 0.58 mg/dL (0.60-1.20); Glomerular Filtration Rate >60 (60-); Glucose, Blood 84 mg/dL (70-99); Potassium, Blood 3.2 mmol/L (3.5-5.5); Sodium, Blood 140 mmol/L (136-145)
--- NOTE | 2020-05-05 06:00 | NUR ---
HYPERTENSIVE PT HYPERTENSIVE THIS AM, DR. LIEBERMAN CALLED AND NOTIFED OF PT BP 174/101. RECEIVED ORDER FOR IV LABETALOL Q6HR PRN FOR SBP GREATER THAN 160 AND TELEMETRY.
--- NOTE | 2020-05-05 15:22 | NUR ---
PATIENT HAS REMAINED IN ABOUT THE SAME STATE YESTERDAY. LETHARGIC; HEAVY TREMORS AND IRRITABLE WITH ANY CARE PROVIDED. ST IN ROOM AT THIS TIME PERFORMING A SPEECH EVAL AND DOES NOT FEEL CONFIDENT IN PATIENT'S ABILITY TO TAKE FOOD AND FLUIDS BY MOUTH. THIS REMAINS TO BE THE SAME ASSESSMENT YESTERDAYS. ASIDE FRM THIS THERE AHAVE BEEN NO ACUTE CHANGES NOTED OR REPORTED. pATIENT REMAINS ON IVF'S PER EMAR. RECIEVED 2 K-RIDERS. ALL PO MEDS HELD. FAMILY AT BEDSIDE AT ALL TIMES. ROX CONTINUE TO MONITOR AND PROVIDE CARE NEEDED.
--- NOTE | 2020-05-05 23:38 | NUR ---
IV IN RT FOREARM IS IN RETROGRADE IN A LARGE VEIN, SLIGHT REDNESS AT SITE. WILL CHANGE IV TO NEW SITE WITH 18 G FOR OR IN AM. SON IS SLEEPING IN ROOM. DR DELUCA SPOKE WITH SON EARLIER THIS SHIFT ABOUT PEG TUBE PLACEMENT IN AM.
[2020-05-06 01:07] LABS: Influenza A, PCR Negative (NEGATIVE); Influenza B, PCR Negative (NEGATIVE); Resp Syncytial Virus, PCR Negative (NEGATIVE); SARS-Cov-2 (COVID-19) PCR, MMC Positive (NEGATIVE)
--- NOTE | 2020-05-06 01:45 | NUR ---
LAB NOTIFIED THIS RN OF COVID 19+ TEST RESULT. PATIENT MOVED TO ISOLATION UNIT ROOM 207, REPORT GIVEN TO DIXON DUVAL. SON WAS INFORMED OF + TEST. DR DELUCA NOTIFIED AND HE WOULD LIKE TO TAKE PT TO OR FOR PEG PLACEMENT.
--- NOTE | 2020-05-06 02:13 | NUR ---
ASSUMED CARE OF VICENTE FROM ROOM 324. HE IS SETTLED IN THE ROOM, OPENED HIS EYES WHEN ASKED BUT IS NON-VERBAL. HE DOES MOVE HIS ARMS WHEN BEING TOUCHED. LAYING ON THE RIGHT SIDE, CATHETER IS NOTED TO BE RED BUT NOT BRIGHT MORE ON THE DARKER SIDE OF RED. GOOD OUTPUT NOTED. FRAILE APPEARING. BED ALARM IS PLACED AND CALL LIGHT IS IN REACH.
[2020-05-06 03:54] LABS: BASOPHILS ABSOLUTE AUTO 0.02 K/mm3 (0.00-0.23); BASOPHILS PERCENT AUTO 0 % (0-2); EOSINOPHILS ABSOLUTE AUTO 0.04 K/mm3 (0.00-0.68); EOSINOPHILS PERCENT AUTO 1 % (0-6); Hematocrit 36.6 % (37.0-53.0); Hemoglobin 11.8 g/dL (13.5-17.5); IMMATURE GRAN ABSOLUTE AUTO 0.02 K/mm3 (0.00-0.10); IMMATURE GRAN PERCENT AUTO 0 % (0-1); LYMPHOCYTES ABSOLUTE AUTO 0.76 K/mm3 (0.84-5.20); LYMPHOCYTES PERCENT AUTO 15 % (21-46); MONOCYTES PERCENT AUTO 16 % (4-13); Mean Corpuscular HGB 29.6 pg (26.0-34.0); Mean Corpuscular HGB Conc 32.2 g/dL (31.5-36.5); Mean Corpuscular Volume 92 fL (80-100); Mean Platelet Volume 9.8 fL (9.1-12.4); NEUTROPHILS ABSOLUTE AUTO 3.45 K/mm3 (1.96-9.15); NEUTROPHILS PERCENT AUTO 68 % (41-73); Platelet Count 369 K/mm3 (150-400); RDW Coefficient Variation 12.9 % (11.7-14.2); RDW Standard Deviation 42.6 fL (35.1-46.3); Red Blood Cell Count 3.99 M/mm3 (4.30-5.90); White Blood Cell Count 5.09 K/mm3 (4.00-11.30)
[2020-05-06 04:10] LABS: Anion Gap 5 mmol/L (6-16); Blood Urea Nitrogen 18 mg/dL (8-24); Bun/Creatinine Ratio 34.5 (12.0-20.0); CO2, Blood 27 mmol/L (21-32); Calcium, Blood 8.2 mg/dL (8.5-10.1); Chloride, Blood 112 mmol/L (98-108); Creatinine, Blood 0.52 mg/dL (0.60-1.20); Glomerular Filtration Rate >60 (60-); Glucose, Blood 83 mg/dL (70-99); Potassium, Blood 3.1 mmol/L (3.5-5.5); Sodium, Blood 144 mmol/L (136-145)
--- NOTE | 2020-05-06 05:02 | NUR ---
SHIFT SUMMARY: VICENTE WAS TRANSFERRED FROM 324 DUE TO PATIENT BEING COVID19 POSITIVE. SINCE TRANSFER, HE HAS BEEN SLEEPING COMFORTABLY. HE WILL OPEN HIS EYES WHEN SPOKEN TO BUT DOES NOT RESPOND. NEW IV WAS PLACED IN THE LEFT FA 20G, IV FLUIDS ARE INFUSING INTO IT. PATIENT NPO NO PO MEDICATIONS WERE GIVEN. CATHETER OUTPUT GOOD, BROWNISH RED IN COLOR. HE HAD A LOOSE BM LAST NIGHT. DR. WOLFF WAS NOTIFED OF POSITIVE TEST, HE STILL MIGHT GO TO OR IN AM FOR PEG TUBE PLACEMENT. BED ALARM HAS REMAINED ON AND CALL LIGHT IN REACH.
--- NOTE | 2020-05-06 10:07 | NUR ---
05/06/20 Kamron Rosen See Anesthesia record. Bite Block Placed. 3-LEAD EKG REVIEWED WITH PHYSICIAN PRIOR TO START OF PROCEDURE. Patient to ENDO 2 History, Chart, Medications and Allergies reviewed before start of procedure. MONITOR INTACT WITH CONTINUOUS PULSE OXIMETRY AND INTERMITTENT BP. O2 VIA N/C INTACT THROUGHOUT SEDATION/PROCEDURE.
--- NOTE | 2020-05-06 16:53 | NUR ---
SHIFT SUMMARY PT SLEEPING AT START OF SHIFT. DID NOT OPEN EYES TO VERBAL STIMULI OR WITH REPOSITIONING. DAY SURGERY HERE TO TAKE PT FOR PEG TUBE PLACEMENT. SLIDE TX TO SUZANNA. PT LATER RETURNED FROM SX WITH ABD BINDER IN PLACE. SLIDE TX BACK TO BED. PT SLEEPY FOR A WHILE, BUT LATER COUGHED ONCE WITH TURNING AND REPOSITIONING. DR WHITE HERE AFTER SX. FRIEND CATH PATENT, BUT DRAINING PINK TO CRANBERRY COLORED URINE. PER REPORT, DRAINING SAME COLOR YESTERDAY AND LAST NIGHT. DR WHITE REQUESTED FRIEND TO BE FLUSHED/IRRIGATED. DONE PER ORDER, BUT DID NOT IMPROVE COLOR TO PRESENT. PEG TUBE TO BE USED FOR MEDS ONLY STARTING TONIGHT. TUBE FEEDING TO START TOMORROW AM. PT INCONTINENT OF BOWELS X1 TODAY. LIQUID BROWN STOOL. PER REPORT, NOT NEW. PT'S TEMP UP SLIGHTLY THIS AFTERNOON. BLANKETS REMOVED. ICE BAG PLACED TO NECK. HEAT DECREASED WELL. IV LABETALOL TO BE GIVEN IV PER EMAR. PT'S CALLED BY DR WHITE AFTER SX. PT'S LATER CALLED THIS RN TO CHK ON PT FURTHER. WILL CONTINUE TO MX. CALL LT IN REACH. BED ALARM ON FOR SAFETY. IVF'S D/C'D THIS AM PER DR WHITE.
--- NOTE | 2020-05-06 18:49 | NUR ---
TEMP REMAINED UNCHANGED AFTER ICE BAG LEFT BEHIND NECK AND BLANKETS REMOVED. TYLENOL GIVEN THRU PEG TUBE WITH EVENING MED. BP ELEVATED; SEE CHART. IV LABETALOL GIVEN PER EMAR; LITTLE CHANGE IN BP, SEE CHART
--- NOTE | 2020-05-06 18:56 | NUR ---
FLUSHED RONNA CATH AGAIN. OUT PUT WILL TURN TO CLEAR LIGHT PALE PINK FOR A WHILE, BUT EACH TIME A WHILE LATER BECOMES CRANBERRY RED AGAIN. RONNA IS PATENT, BUT JUST DRK RED OUTPUT. WILL REPORT TO ONCOMING RN.
--- NOTE | 2020-05-07 05:00 | NUR ---
SUMMARY PT BLADDER IRRIGATED ORDERED. PT FRIEND DRAINING CRANBERRY URINE TO GRAVITY. PT MEDS GIVEN VIA PEG TUBE. PT TOLERATED WELL. PEG TUBE SITE IS C/D/I. PT HAS SLEPT MOST OF SHIFT. PT WAS ABLE TO ANSWER SOME QUESTIONS THIS AM BRIEFLY. PT CURRENTLY SLEEPING AND BREATHING EASY. CALL LIGHT IN REACH AND BED ALARM ON.
[2020-05-07 05:59] LABS: BASOPHILS ABSOLUTE AUTO 0.02 K/mm3 (0.00-0.23); BASOPHILS PERCENT AUTO 0 % (0-2); EOSINOPHILS ABSOLUTE AUTO 0.03 K/mm3 (0.00-0.68); EOSINOPHILS PERCENT AUTO 0 % (0-6); Hematocrit 36.6 % (37.0-53.0); Hemoglobin 11.8 g/dL (13.5-17.5); IMMATURE GRAN ABSOLUTE AUTO 0.03 K/mm3 (0.00-0.10); IMMATURE GRAN PERCENT AUTO 0 % (0-1); LYMPHOCYTES ABSOLUTE AUTO 0.75 K/mm3 (0.84-5.20); LYMPHOCYTES PERCENT AUTO 11 % (21-46); MONOCYTES ABSOLUTE AUTO 0.82 K/mm3 (0.16-1.47); MONOCYTES PERCENT AUTO 12 % (4-13); Mean Corpuscular HGB 29.6 pg (26.0-34.0); Mean Corpuscular HGB Conc 32.2 g/dL (31.5-36.5); Mean Corpuscular Volume 92 fL (80-100); Mean Platelet Volume 9.4 fL (9.1-12.4); NEUTROPHILS ABSOLUTE AUTO 5.49 K/mm3 (1.96-9.15); NEUTROPHILS PERCENT AUTO 77 % (41-73); Platelet Count 335 K/mm3 (150-400); RDW Standard Deviation 42.5 fL (35.1-46.3); Red Blood Cell Count 3.98 M/mm3 (4.30-5.90); White Blood Cell Count 7.14 K/mm3 (4.00-11.30)
[2020-05-07 06:15] LABS: Anion Gap 6 mmol/L (6-16); Blood Urea Nitrogen 22 mg/dL (8-24); Bun/Creatinine Ratio 43.7 (12.0-20.0); CO2, Blood 25 mmol/L (21-32); Calcium, Blood 7.9 mg/dL (8.5-10.1); Chloride, Blood 113 mmol/L (98-108); Glomerular Filtration Rate >60 (60-); Glucose, Blood 95 mg/dL (70-99); Magnesium, Blood 2.1 mg/dL (1.6-2.4); Potassium, Blood 3.1 mmol/L (3.5-5.5); Sodium, Blood 144 mmol/L (136-145)
--- NOTE | 2020-05-07 18:19 | NUR ---
SHIFT SUMMARY PT MORE AWAKE TODAY AT START OF SHIFT AND TO PRESENT. MOST SPEECH IS GARBLED, BUT A FEW WORDS WERE UNDERSTANDABLE THIS EVENING, THOUGH CONFUSED. PT SHOUTING OUT THAT HE WANTED "PAINT THINNER", "SO I CAN GET OUT OF HERE". DR WHITE IN TO SEE PT TODAY, WELL DR WOLFF. NEW ORDERS RECEIVED TO START USING PEG TUBE FOR FEEDING. DIETARY PLACED ORDERS THIS AFTERNOON AND CONTINOUS FEED WAS STARTED. SOFT MITTS PLACED ON HANDS PT HAD ALREADY REMOVED ABD BINDER MULTIPLE TIMES WELL TELE MX LEADS. DR WHITE D/C'D TELE, WHICH HELPED, BUT PT STILL TRYING TO GET TO PEG TUBE. ABD BINDER OPENING TURNED TO SIDE TO MAKE IT MORE DIFFICULT FOR PT TO ACCESS. PT HAS BEEN TOLERATING MEDICATION ADMIN WELL TUBE FEED TO PRESENT. FRIEND CATH REMAINS PATENT. URINE WAS PRETTY CLEAR LT YELLOW MOST OF DAY, BECOMING MORE ANA THIS AFTERNOON. NO LONGER CRANBERRY RED. PT RESTING QUIETLY AWAKE AT THIS TIME. REPOSITIONED THRU OUT THE DAY TO KEEP OFF BUTTOCKS. BED ALARM ON FOR SAFETY. CALL LT IN REACH, THOUGH PT IS TOO CONFUSED TO USE APPROPRIATELY. PT'S CALLED AGAIN TODAY; UPDATE GIVEN.
--- NOTE | 2020-05-08 04:33 | NUR ---
SHIFT SUMMARY PATIENT HAD NO ACUTE CHANGES OBSERVED. AXOX TO SELF WITH GARBLED SPEECH AND BEDREST. NPO. CONTINUOUS PEG TUBE FEEDING AT 35 mL/HR. MEDS CRUSHED AND ADMINISTERED THROUGH PEG PER ORDERS. PIVS REMAIN INTACT. VSS/FEBRILE. DENIES PAIN, SON, AND N/V. FRIEND PATIENT AND DRAINING ANA URINE. SOFT MITTS ON HANDS TO PREVENT PULLING LINES AND CORDS. ABD BINDER IN PLACE TO PREVENT PEG TUBE FROM BEING PULLED. CALL LIGHT IN REACH. BED IN LOWEST POSITION AND ALARM ACTIVATED. WILL CONTINUE TO MONITOR UNTIL DAY SHIFT NURSE ASSUMES CARE.
[2020-05-08 05:24] LABS: BASOPHILS ABSOLUTE AUTO 0.02 K/mm3 (0.00-0.23); BASOPHILS PERCENT AUTO 0 % (0-2); EOSINOPHILS ABSOLUTE AUTO 0.05 K/mm3 (0.00-0.68); EOSINOPHILS PERCENT AUTO 1 % (0-6); Hemoglobin 11.6 g/dL (13.5-17.5); IMMATURE GRAN ABSOLUTE AUTO 0.02 K/mm3 (0.00-0.10); IMMATURE GRAN PERCENT AUTO 0 % (0-1); LYMPHOCYTES ABSOLUTE AUTO 0.81 K/mm3 (0.84-5.20); LYMPHOCYTES PERCENT AUTO 13 % (21-46); MONOCYTES ABSOLUTE AUTO 0.84 K/mm3 (0.16-1.47); MONOCYTES PERCENT AUTO 14 % (4-13); Mean Corpuscular HGB 29.4 pg (26.0-34.0); Mean Corpuscular HGB Conc 32.2 g/dL (31.5-36.5); Mean Corpuscular Volume 91 fL (80-100); NEUTROPHILS ABSOLUTE AUTO 4.42 K/mm3 (1.96-9.15); NEUTROPHILS PERCENT AUTO 72 % (41-73); Platelet Count 363 K/mm3 (150-400); RDW Coefficient Variation 12.7 % (11.7-14.2); RDW Standard Deviation 41.6 fL (35.1-46.3); Red Blood Cell Count 3.95 M/mm3 (4.30-5.90); White Blood Cell Count 6.16 K/mm3 (4.00-11.30)
[2020-05-08 05:54] LABS: Anion Gap 6 mmol/L (6-16); Blood Urea Nitrogen 18 mg/dL (8-24); Bun/Creatinine Ratio 36.6 (12.0-20.0); CO2, Blood 25 mmol/L (21-32); Calcium, Blood 8.3 mg/dL (8.5-10.1); Chloride, Blood 107 mmol/L (98-108); Creatinine, Blood 0.49 mg/dL (0.60-1.20); Glomerular Filtration Rate >60 (60-); Glucose, Blood 103 mg/dL (70-99); Potassium, Blood 3.5 mmol/L (3.5-5.5); Sodium, Blood 138 mmol/L (136-145)
--- NOTE | 2020-05-08 15:08 | NUR ---
Review of pt needs and discussion with family with doctor gibbons for out patient care planning.
--- NOTE | 2020-05-08 17:24 | NUR ---
SHIFT SUMMARY PT ALERT TO SELF ONLY; GARBLED SPEECH. PT ON MITTS RESTRAINTS DUE TO PULLING LINES SUCH PEG TUBE. PT TOLERATING BOLUS FEEDS. PT HAD VERY LOOSE BM X2. PT HAS TREMORS. PT MIGHT GO HOME WITH H&H PER DR TO MANAGE TUBE FEED WITH .BED ALARM IS ON AND CALL LIGHT WITHIN REACH. RESTRAINTS MANAGEMENT PER POLICY Q2.
--- NOTE | 2020-05-08 20:03 | NUR ---
RESTING QUIETLY IN BED. MITTENS IN USE TO PREVENT LINE PULLS. HOB ELEVATED 45 DEGREES. CALL LIGHT IN REACH
--- NOTE | 2020-05-09 03:38 | NUR ---
SHIFT SUMMARY CONTINUES TO REST IN BED WITH HOB ELEVATED OVER 45 DEGREES FOR ASPIRATION PRECAUTIONS. MEDS PER PEG TUBE. MITTENS AND ABD BINDER TO PREVENT PT REMOVAL OF TUBE. INTERMITTENT PARKINSON SHAKING AND VERBALIZED IRRITATON AT STAFF. ISOLATION PRECUTIONS MAINTAINED FOR COVID 19. CALL LIGHT IN REACH. FRIEND DRAINING ANA.
--- NOTE | 2020-05-09 10:34 | NUR ---
Review of pt with speech therapist and phsycial therapist. Will see if Dr Sosa want us to speak with .
--- NOTE | 2020-05-09 18:58 | NUR ---
SHIFT SUMMARY PT HAS BEEN COOPERATIVE WITH CARE TODAY. MITTS REMOVED BY PT THIS AFTERNOON AND HAS NOT BEEN PULLING ON ANY LINES OR PEG. DISCUSSED WHY MITTS HAD BEEN PLACED IN THE FIRST PLACE AND PT REPORTED HE DIDN'T REMEMBER BUT HE WOULD LEAVE LINES ALONE. TENTATIVE PLANS FOR DISCHARGE TOMORROW. HAS BEEN ON ROOM AIR WITH NO DESATURATION. TOLERATING TUBE FEEDINGS WITH NO RESIDUALS. WORKED WITH P.T. TODAY. MORE AWAKE AND TALKATIVE THIS AFTERNOON. TREMORS CAN BE MORE SEVERE AT TIMES THAN OTHERS.
--- NOTE | 2020-05-09 21:17 | NUR ---
DR WOLFF AT BEDSIDE, ASSESSED THE ABD/PEG TUBE. NOIFIED OF REPORTED LOOSE STOOLS ON DAY SHIFT, ACKNOWLEDGED. WILL ASSESS COLOR, ETC OF STOOL IF INCONT ON THIS SHIFT. PT DENIED PAIN OF ABD. CALL LIGHT IN REACH. ISOLATION PRECAUTIONS MAINTAINED. IVF OF NS CONTINUES AT 100 ML/HR.
--- NOTE | 2020-05-10 04:41 | NUR ---
SHIFT SUMMARY HAS BEEN RESTING QUIETLY WITH FEW INTERRUPTIONS UNLESS AWAKENED FOR MEDICATIONS AND FEEDING VIA PEG TUBE. TOLERATING FEEDINGS WELL. NO NOTED ACTING OUT, PEG TUBE IN PLACE, ABD BINDER INTACT. CALL LIGHT IN REACH. IVF OF NS INFUSING ORDERED. ISOLATIN PRECAUTIONS MAINTAINED
[2020-05-10 06:00] LABS: Hematocrit 36.7 % (37.0-53.0); Hemoglobin 11.8 g/dL (13.5-17.5); Mean Corpuscular HGB 29.6 pg (26.0-34.0); Mean Corpuscular HGB Conc 32.2 g/dL (31.5-36.5); Mean Corpuscular Volume 92 fL (80-100); Mean Platelet Volume 9.8 fL (9.1-12.4); Platelet Count 358 K/mm3 (150-400); RDW Standard Deviation 43.3 fL (35.1-46.3); Red Blood Cell Count 3.99 M/mm3 (4.30-5.90); White Blood Cell Count 5.21 K/mm3 (4.00-11.30)
[2020-05-10 06:17] LABS: Albumin, Blood 2.3 g/dL (3.4-5.0); Anion Gap 4 mmol/L (6-16); Blood Urea Nitrogen 22 mg/dL (8-24); Bun/Creatinine Ratio 47.8 (12.0-20.0); CO2, Blood 28 mmol/L (21-32); Calcium, Blood 8.5 mg/dL (8.5-10.1); Chloride, Blood 101 mmol/L (98-108); Creatinine, Blood 0.46 mg/dL (0.60-1.20); Glomerular Filtration Rate >60 (60-); Glucose, Blood 113 mg/dL (70-99); Potassium, Blood 4.3 mmol/L (3.5-5.5); Sodium, Blood 133 mmol/L (136-145)
[2020-05-10] MEDS ORDERED: ACET325UDC PT (11:54)
[2020-05-10] MEDS ORDERED: BISA10S PR (11:55)
[2020-05-10] MEDS ORDERED: DOCU LIQUI50 MG/5 ML PT (11:56)
[2020-05-10] MEDS ORDERED: MELATIN PT (11:57)
[2020-05-10] MEDS ORDERED: SENN187 PT (11:58)
[2020-05-10] MEDS ORDERED: SERT25 PT (11:58)
--- NOTE | 2020-05-10 12:45 | NUR ---
PT DISCHARGING TO HOME TODAY. PICKED UP BY [facility] VIA GURNEY TRANSFER. PT GIVEN 12OO MEDS AND JEVITY TUBE FEEDING BEFORE DC. VITALS REVIEWED AND , BERTRAM CALLED TO NOTIFY TIME OF DC. DC INSTRUCTIONS SENT WITH AMBULANCE MEDICS AND ESCORTED OUT SAFELY.
--- NOTE | 2020-05-10 18:04 | NUR ---
Contacted for support and offer out patient follow up if needed.
== END 2020-05-10 12:55 | disposition home health service (06) | DRG 698 ==
LOC: ER 11:26 → MEDS 17:35
PROVIDERS: Emergency Medicine; Internal Medicine; Internal Medicine Gastroenterology; Nurse Practitioner Acute Care; ADMIT Hospitalist
PROC: 3E0G76Z Introduction of Nutritional Substance into Upper GI, Via Natural or Artificial Opening (ICD-10-PCS; 2020-05-06)
PROC: 0DH63UZ Insertion of Feeding Device into Stomach, Percutaneous Approach (ICD-10-PCS; principal; 2020-05-06 09:00)
DX: T83.511A Infection and inflammatory reaction due to indwelling urethral catheter, initial encounter (principal); G92 Toxic encephalopathy; U07.1 COVID-19; G83.5 Locked-in state; N39.0 Urinary tract infection, site not specified; E03.9 Hypothyroidism, unspecified; E86.0 Dehydration; G20 Parkinson's disease; E87.6 Hypokalemia; W19.XXXA Unspecified fall, initial encounter; H91.90 Unspecified hearing loss, unspecified ear; G47.33 Obstructive sleep apnea (adult) (pediatric); R62.7 Adult failure to thrive; Z87.891 Personal history of nicotine dependence; K22.8 Other specified diseases of esophagus
CPT/HCPCS: 0241U; 36415; 51702; 70450; 71045; 74177; 80048; 80053; 80069; 80202; 81001; 82947; 83735; 84100; 84145; 84443; 85025; 85027; 87086; 92526; 92610; 94667; 94668; 94760; 94762; 96374-59; 97110; 97112; 97162; 97166; 97530; 99285-25; A9270; A9270-GY; C1769; C9113; J0690; J0696; J1650; J2704; J3370; J3480; J7030; J7050; J7120; Q9967

== ENCOUNTER 2020-05-15 14:00 | Inpatient (IN) | payer MEDICARE, OTHER ==
[~2020-05-15] VITALS: Ht 188 cm; Wt 86.2 kg
[~2020-05-15 14:00] MED LIST changes: +ACET325UDC PT; +BISA10S PR; +CARBIDOPA-LEVO1 EA15 PO; +CARBIDOPA-LEVO1 EA17 PO; +CARBLEV25 PT; +DOCU LIQUI50 MG/5 ML PT; +EUTHYROX50 MCG PT; +MELATIN PT; +PRAM.5 PT; +SENN187 PT; +SERT25 PT
[2020-05-15 14:41] LABS: BASOPHILS ABSOLUTE AUTO 0.02 K/mm3 (0.00-0.23); BASOPHILS PERCENT AUTO 0 % (0-2); EOSINOPHILS ABSOLUTE AUTO 0.02 K/mm3 (0.00-0.68); EOSINOPHILS PERCENT AUTO 0 % (0-6); Hematocrit 39.4 % (37.0-53.0); Hemoglobin 12.9 g/dL (13.5-17.5); IMMATURE GRAN ABSOLUTE AUTO 0.06 K/mm3 (0.00-0.10); IMMATURE GRAN PERCENT AUTO 1 % (0-1); LYMPHOCYTES ABSOLUTE AUTO 0.87 K/mm3 (0.84-5.20); LYMPHOCYTES PERCENT AUTO 7 % (21-46); MONOCYTES ABSOLUTE AUTO 1.16 K/mm3 (0.16-1.47); MONOCYTES PERCENT AUTO 10 % (4-13); Mean Corpuscular HGB 29.9 pg (26.0-34.0); Mean Corpuscular HGB Conc 32.7 g/dL (31.5-36.5); Mean Corpuscular Volume 91 fL (80-100); Mean Platelet Volume 9.4 fL (9.1-12.4); NEUTROPHILS ABSOLUTE AUTO 10.03 K/mm3 (1.96-9.15); NEUTROPHILS PERCENT AUTO 82 % (41-73); Platelet Count 361 K/mm3 (150-400); RDW Coefficient Variation 13.5 % (11.7-14.2); RDW Standard Deviation 45.4 fL (35.1-46.3); Red Blood Cell Count 4.32 M/mm3 (4.30-5.90); White Blood Cell Count 12.16 K/mm3 (4.00-11.30)
[2020-05-15 14:58] LABS: Alanine Aminotransfer (ALT/SGP 12 U/L (12-78); Albumin, Blood 2.7 g/dL (3.4-5.0); Albumin/Globulin Ratio 0.6 (0.8-1.8); Alk Phos 73 U/L (50-136); Anion Gap 10 mmol/L (6-16); Aspartate Aminotrans (AST/SGOT 20 U/L (12-37); Bilirubin, Total 0.8 mg/dL (0.1-1.0); Blood Urea Nitrogen 26 mg/dL (8-24); Bun/Creatinine Ratio 47.4 (12.0-20.0); CO2, Blood 26 mmol/L (21-32); Calcium, Blood 9.1 mg/dL (8.5-10.1); Chloride, Blood 99 mmol/L (98-108); Creatinine, Blood 0.55 mg/dL (0.60-1.20); Globulin, Blood 4.4 g/dL (2.2-4.0); Glomerular Filtration Rate >60 (60-); Glucose, Blood 138 mg/dL (70-99); Potassium, Blood 3.2 mmol/L (3.5-5.5); Sodium, Blood 135 mmol/L (136-145); Total Protein, Blood 7.1 g/dL (6.4-8.2); Troponin I <0.015 ng/mL (0.000-0.040)
[2020-05-15 17:57] LABS: Source, Urine Catheter
[2020-05-15 18:06] LABS: Appearance, Urine Cloudy (Clear); Bilirubin, Urine Neg (Neg); Blood, Urine 5+ (Neg); Color, Urine Brown (P-Yellow); Glucose Qualitative, Urine Neg (Neg); Ketones, Urine 1+ (Neg); Leukocyte Esterase, Urine 3+ (Neg); Nitrite, Urine Pos (Neg); Protein, Urine 3+ (Neg); Specific Gravity, Urine 1.015 (1.003-1.022); Urobilinogen, Urine 1+ (Normal)
[2020-05-15 18:24] LABS: Bacteria Mod /hpf; Red Blood Cells, Urine TNTC /hpf (0-2); Squamous Epithelial Cells Not Seen /hpf (Few)
[2020-05-15] MEDS ORDERED: CARBIDOPA-LEVO1 EA17 PT (18:49)
[2020-05-15] MEDS ORDERED: CARBIDOPA-LEVO1 EA15 PO (18:50)
[2020-05-15] MEDS ORDERED: CARBIDOPA-LEVO1 EA15 PT (18:56)
[2020-05-15 20:25] LABS: Adenovirus Not Detected (NOT DETECT); Bordetella pertussis Not Detected (NOT DETECT); Chlamydophila pneumoniae Not Detected (NOT DETECT); Coronavirus 229E Not Detected (NOT DETECT); Coronavirus HKU1 Not Detected (NOT DETECT); Coronavirus NL63 Not Detected (NOT DETECT); Coronavirus OC43 Not Detected (NOT DETECT); Human Metapneumovirus Not Detected (NOT DETECT); Human Rhinovirus/Enterovirus Not Detected (NOT DETECT); Influenza A/2009-H1 Not Detected (NOT DETECT); Influenza A/H1 Not Detected (NOT DETECT); Influenza A/H3 Not Detected (NOT DETECT); Influenza B Not Detected (NOT DETECT); Mycoplasma pneumoniae Not Detected (NOT DETECT); Parainfluenza Virus 1 Not Detected (NOT DETECT); Parainfluenza Virus 2 Not Detected (NOT DETECT); Parainfluenza Virus 3 Not Detected (NOT DETECT); Parainfluenza Virus 4 Not Detected (NOT DETECT); Respiratory Syncytial Virus Not Detected (NOT DETECT); SARS-Cov-2 (COVID-19), BioFire Not Detected (NOT DETECT)
--- NOTE | 2020-05-16 00:31 | NUR ---
0030 PHYSISICAN CORRESPONDENCE EXPLAINED PATIENT HERE FOR SBO WITH SX CONSULT SCHEDULED FOR AM. CURRENTLY ON LOW INTERMITTENT SUCTION TO PEG TUBE PER ADMITTING PROVIDER. HAS ALSO HAD ONE EPISODE OF EMESIS SINCE ARRIVAL TO FLOOR. HAS 0000 WELL 0600 MEDICATIONS PER TUBE. ONCALL PROVIDER SWITCHED SYNTHROID TO IV AND STATED TO HOLD ALL OTHERS PER TUBE.
--- NOTE | 2020-05-16 04:45 | NUR ---
SHIFT SUMMARY RECIEVED REPORT @ 2036 FROM LAURA RN, ED. ARRIVED TO MEDICAL FLOOR @ 2050 VIA STRETCHER; MAXIMUM ASSISTANCE NEEDED WITH TRANSFER. ALERT. MINIMAL VERBAL. FRIEND REPLACED BY ED STAFF WITH 18F COUDE, SECURED AND DRAINING TO GRAVITY. NS RUNNING @ 75 ML/HR WITHOUT COMPLICATIONS. REMAINED NPO SINCE ARRIVAL. PLACED ON LOW INTERMITTENT SUCTION TO PEG TUBE VIA ORDERS FROM ADMITTING PHSYICIAN. ABDOMEN EXTREMELY DISTENDED WITH TYMPANIC TONES; NO NOTED TENDERNESS UPON PALPATION. 1 EPISODE OF EMESIS. HYPERTENSIVE; HOWEVER, APPEARS ON TREND WITH PREVIOUS PRESSURES. AFEBRILE. APPEARED TO HAVE RESTED OVERNIGHT. NO ACUTE CHANGES AT THIS TIME. BED REMAINED IN LOWEST POSITION; ALARM ON. CALL LIGHT WITHIN REACH. WCTM. REPORT TO ONCOMING RN.
[2020-05-16 05:11] LABS: BASOPHILS ABSOLUTE AUTO 0.02 K/mm3 (0.00-0.23); BASOPHILS PERCENT AUTO 0 % (0-2); EOSINOPHILS PERCENT AUTO 0 % (0-6); Hematocrit 39.7 % (37.0-53.0); Hemoglobin 12.7 g/dL (13.5-17.5); IMMATURE GRAN ABSOLUTE AUTO 0.06 K/mm3 (0.00-0.10); IMMATURE GRAN PERCENT AUTO 0 % (0-1); LYMPHOCYTES ABSOLUTE AUTO 0.63 K/mm3 (0.84-5.20); LYMPHOCYTES PERCENT AUTO 5 % (21-46); MONOCYTES ABSOLUTE AUTO 0.97 K/mm3 (0.16-1.47); MONOCYTES PERCENT AUTO 7 % (4-13); Mean Corpuscular HGB 29.5 pg (26.0-34.0); Mean Corpuscular Volume 92 fL (80-100); Mean Platelet Volume 9.6 fL (9.1-12.4); NEUTROPHILS ABSOLUTE AUTO 12.27 K/mm3 (1.96-9.15); NEUTROPHILS PERCENT AUTO 88 % (41-73); Platelet Count 357 K/mm3 (150-400); RDW Coefficient Variation 13.6 % (11.7-14.2); RDW Standard Deviation 46.1 fL (35.1-46.3); Red Blood Cell Count 4.31 M/mm3 (4.30-5.90); White Blood Cell Count 13.95 K/mm3 (4.00-11.30)
[2020-05-16 05:39] LABS: Alanine Aminotransfer (ALT/SGP 27 U/L (12-78); Albumin, Blood 2.6 g/dL (3.4-5.0); Albumin/Globulin Ratio 0.6 (0.8-1.8); Alk Phos 74 U/L (50-136); Anion Gap 8 mmol/L (6-16); Aspartate Aminotrans (AST/SGOT 23 U/L (12-37); Bilirubin, Total 1.3 mg/dL (0.1-1.0); Blood Urea Nitrogen 25 mg/dL (8-24); Bun/Creatinine Ratio 45.4 (12.0-20.0); CO2, Blood 28 mmol/L (21-32); Chloride, Blood 102 mmol/L (98-108); Creatinine, Blood 0.55 mg/dL (0.60-1.20); Globulin, Blood 4.4 g/dL (2.2-4.0); Glomerular Filtration Rate >60 (60-); Glucose, Blood 100 mg/dL (70-99); Potassium, Blood 3.6 mmol/L (3.5-5.5); Sodium, Blood 138 mmol/L (136-145)
--- NOTE | 2020-05-16 11:42 | NUR ---
Received call from Jamie Romo and Mirna. Discussed case and concerns. [facility] report family would benefit from discussion regarding goals of care. Called and spoke with Dr Trujillo. Dr Trujillo confirms discussion with family regarding goals of care would be beneficial. Pt resting in bed with his eyes closed. Attempted to arouse Pt with moderate level of verbal stimuli with no response. Did not attempt to disturb Pt any further. Pt appears comfortable with no S/S of distress at this time. Spoke with Bedside RN Juliane and discussed case. Called and spoke with Pt's spouse Dilcia. Spouse places conversation on speaker phone so other family members can participate on conversation. Engaged in therapeutic discussion regarding goals of care. Listened as spouse reports hopefullness of Pt recovering. Provided gentle education on disease process including trajectory of disease. Discussed hospice and comfort care as an option. Educated on comfort care and hospice philosophy with V/U made by family. Discussed consideration of comfort and quality of life. Family expresses concerns regarding their ability to care for Pt at this point in his life. Pt's care requirements have exceeded their ability. Family is requesting assistance with finding placement for Pt. Family reports they would like to allow some time to see if Pt improves enough to work with physical therapy before considering hospice. Reported that PT and OT have not been ordered at this point and would not be beneficial if Pt does not improve. Educated on the importance of Pt being awake enough to work with PT and OT. Family expresses appreciation of conversation and will re consider goals of care if Pt does not improve. No other concerns reported at this time. Palliative Care will remain available.
--- NOTE | 2020-05-16 19:38 | NUR ---
SHIFT SUMMARY PT SLEEPING, RESTING QUIETLY AT START OF SHIFT. WAKES EASILY FOR CARE, BUT VERY WEAK AND DIFFICULT TO UNDERSTAND. CAN ANS SIMPLE YES/NO QUESTIONS, BUT DIFFICULT TO UNDERSTAND. PEG TUBE REMAINED TO LIS. ABD VERY DISTENDED. DR CEDILLO IN TO SEE PT TODAY. NO SX INTERVENTION TO BE DONE, BUT NEW ORDERS PLACED. PT HAD INCONTINENT VERY LOOSE STOOL. SAMPLE FOR C-DIFF OBTAINED AND SENT; RESULTS NEG. PT HAD ANOTHER SM LOOSE BM AFTER THAT. ABD STILL VERY DISTENDED. IN TO SEE PT TONIGHT. HOPING TO SEE DR WOLFF. FRIEND TO GRAVITY; PATENT DRAINING TEA COLORED URINE. PT REPOSITIONED FREQUENTLY AND HEELS FLOATED ON PILLOWS. NO C/O PAIN. ORAL CARE DONE. CALL LT IN REACH.
--- NOTE | 2020-05-16 20:10 | NUR ---
11:45 THIS AM, MANISH REPORTED TO THIS RN THAT SHE HAD ATTEMPTED TO CALL AND DAUGHTER BOTH REGARDING PEG TUBE FEEDING. MANISH REPORTED NO ANSWER FROM EITHER ONE.
--- NOTE | 2020-05-16 21:26 | NUR ---
DR WOLFF IN TO SEE PATIENT. NO NEW ORDERS AT THIS TIME.
--- NOTE | 2020-05-17 04:58 | NUR ---
SHIFT SUMMARY PATIENT HAD NO ACUTE CHANGES OBSERVED. AXOX TO SELF. DR WOLFF IN TO SEE PATIENT AND NO ORDERS PLACED AT THIS TIME. BEDREST AND NPO. FRIEND PATENT AND DRAINING TO GRAVITY. PIV REMAINS INTACT. NS FINISHED INFUSING AT 75 mL/HR. IV ABXS INFUSED. PEG TUBE FOR LIS. ON 2L O2 NC. ORAL CARE PROVIDED. HYPERTENSIVE. NO S S/X OF PAIN, SOB, AND N/V. AFEBRILE. DROWSY AND MOSTLY NON-VERBAL. CALL LIGHT IN REACH. BED IN LOWEST POSITION AND ALARM ACTIVATED. WILL CONTINUE TO MONITOR UNTIL DAY SHIFT NURSE ASSUMES CARE.
[2020-05-17 05:21] LABS: BASOPHILS ABSOLUTE AUTO 0.01 K/mm3 (0.00-0.23); BASOPHILS PERCENT AUTO 0 % (0-2); EOSINOPHILS ABSOLUTE AUTO 0.02 K/mm3 (0.00-0.68); EOSINOPHILS PERCENT AUTO 0 % (0-6); Hematocrit 34.5 % (37.0-53.0); Hemoglobin 10.9 g/dL (13.5-17.5); IMMATURE GRAN ABSOLUTE AUTO 0.04 K/mm3 (0.00-0.10); IMMATURE GRAN PERCENT AUTO 1 % (0-1); LYMPHOCYTES ABSOLUTE AUTO 0.48 K/mm3 (0.84-5.20); LYMPHOCYTES PERCENT AUTO 7 % (21-46); MONOCYTES ABSOLUTE AUTO 0.81 K/mm3 (0.16-1.47); MONOCYTES PERCENT AUTO 11 % (4-13); Mean Corpuscular HGB 29.9 pg (26.0-34.0); Mean Corpuscular HGB Conc 31.6 g/dL (31.5-36.5); Mean Corpuscular Volume 95 fL (80-100); Mean Platelet Volume 9.5 fL (9.1-12.4); NEUTROPHILS ABSOLUTE AUTO 5.77 K/mm3 (1.96-9.15); NEUTROPHILS PERCENT AUTO 81 % (41-73); Platelet Count 303 K/mm3 (150-400); RDW Coefficient Variation 13.7 % (11.7-14.2); RDW Standard Deviation 47.7 fL (35.1-46.3); Red Blood Cell Count 3.64 M/mm3 (4.30-5.90); White Blood Cell Count 7.13 K/mm3 (4.00-11.30)
[2020-05-17 05:24] LABS: Anion Gap 4 mmol/L (6-16); Blood Urea Nitrogen 30 mg/dL (8-24); Bun/Creatinine Ratio 50.5 (12.0-20.0); CO2, Blood 31 mmol/L (21-32); Calcium, Blood 8.7 mg/dL (8.5-10.1); Chloride, Blood 109 mmol/L (98-108); Creatinine, Blood 0.59 mg/dL (0.60-1.20); Glomerular Filtration Rate >60 (60-); Glucose, Blood 120 mg/dL (70-99); Sodium, Blood 144 mmol/L (136-145)
--- NOTE | 2020-05-17 12:26 | NUR ---
Pt resting in bed upon arrival. Pt attempts to speak with ability to mumble partial word. Offered therapeutic touch and gentle voice. Spoke with Dr Trujillo and discussed case. Family has elected to pursue hospice. Called and spoke with Pt's spouse and Pt's son. Offered therapeutic listening and answered questions. Discussed hospice agencies to choose from. Family will discuss hospice agencies and are still requesting assistance with placement with hospice. Discussed the option to start comfort measures during Pt's hospital stay with family electing comfort measures to start as soon as possible. Educated on comfort measure philosophy with V/U made by family. Discussed current medications Pt is receiving and options of D/C certain medications. Family elects to D/C all medications and elects just comfort medications. Placed order for comfort care, comfort care order set, and D/C maintenance medications per V/O from Dr Trujillo. Spoke with Bedside RN Sadia and discussed case. Spoke with [facility] and relayed family's request for assistance with placement with hospice. Palliative Care will remain available.
--- NOTE | 2020-05-17 17:54 | NUR ---
PT HAS BEEN MADE COMFORT CARE. PT TREATED FOR PAIN PER EMAR. PT AOX0 AND HAS BEEN REPOSTIONED Q2HRS. PT IS INCONTINENT OF BOWELS, BUT HAS NOT HAD A BM TODAY. WILL CONTINUE TO MONITOR.
--- NOTE | 2020-05-18 03:25 | NUR ---
SHIFT SUMMARY PATIENT ON COMFORT CARE. AXO TO SELF AND NON-VERBAL THIS SHIFT. ON 2L O2 NC. BEDREST AND FRIEND PATENT AND DRAINING TO GRAVITY. PEG TUBE SET AT LIS. NO S/SX OF PAIN, SOB, AND N/V. SCHEDULE TURNS. CALL LIGHT IN REACH. BED IN LOWEST POSITION. WILL CONTINUE TO MONITOR UNTIL DAY SHIFT NURSE ASSUMES CARE.
--- NOTE | 2020-05-18 10:20 | NUR ---
Pt resting in bed with his eyes closed. Pt appears comfortable with no S/S of distress at this time. This RN did not disturb Pt at this time. Spoke with Bedside RN Madelyn and discussed case. Madelyn reports suction was turned off this AM. Ativan given to help with tremors with good effect. Palliative Care will remain available.
--- NOTE | 2020-05-18 10:50 | NUR ---
0800 NOTES EYES OPEN WITH MY TALKING. HE IS NON-VERBAL. RESPIRATIONS REGULAR. SOME ARM TREMORS NOTED. MOUTH OPEN. PEG TUBE TO LOW INTERMITTENT SUCTION WITH BROWN DRAINAGE IN TUBING. SKIN FRAGILE.
--- NOTE | 2020-05-18 10:54 | NUR ---
1000 NOTE INTERMITTENT SUCTION TURNED OFF AT 0830 PER MD ORDER. I NOTED THAT HE DRAINED 100 MLS WATERY BROWN DRAINAGE IN THE PAST 27 HRS. HE IS MORE COMFORTABLE AFTER A LORAZEPAM DOSE FOR THE SEVERE TREMORS. HE HAS SLEPT SOME AND IS RESTING WITH RESPIRATIONS 20/MIN.
--- NOTE | 2020-05-18 10:57 | NUR ---
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 O2 2L REMAINS ON.
[2020-05-18 12:19] LABS: Influenza A, PCR Negative (NEGATIVE); Influenza B, PCR Negative (NEGATIVE); Resp Syncytial Virus, PCR Negative (NEGATIVE); SARS-Cov-2 (COVID-19) PCR, MMC Negative (NEGATIVE)
--- NOTE | 2020-05-18 13:49 | NUR ---
1200 NOTE RESTING COMFORTABLY. RESPIRATIONS REGULAR AT 20/MIN.
--- NOTE | 2020-05-18 13:52 | NUR ---
DISCHARGED TO [facility]. SAMY CROWDER SENT WITH HIM. I CALLED REPORT TO [facility] N[facility]. I MEDICATED HIM WITH 0.5 MG OF ATIVAN PRIOR TO THE TRIP. THE BAIT PACKER CAME BY JUST BEFORE HE LEFT. [address]. [address] [employer]. COREY MORALES.
[2020-05-18] MEDS ORDERED: HALDOL5 MG/1 M1 IM (14:08)
[2020-05-18] MEDS ORDERED: ATROPINE SULFATE5 ML SL (14:08)
[2020-05-18] MEDS ORDERED: IPRAT-ALBUT 0.5-3 ML INH (14:09)
[2020-05-18] MEDS ORDERED: MORP20L SL (14:10)
[2020-05-18] MEDS ORDERED: Lorazepam2 MG/1 ML IV (14:10)
[2020-05-18] MEDS ORDERED: TRANSDERM-SCOP1 EAC3 TOP (14:11)
[2020-05-18] MEDS ORDERED: ONDANSETRON4 MG/2 M1 IV (14:11)
[2020-05-18] MEDS ORDERED: SERT25 PT (14:12)
== END 2020-05-18 13:35 | disposition hospice, inpatient (51) | DRG 698 ==
LOC: ER 14:00 → MEDS 19:10
PROVIDERS: Emergency Medicine; Family Medicine; Internal Medicine; ADMIT Internal Medicine
DX: T83.511A Infection and inflammatory reaction due to indwelling urethral catheter, initial encounter (principal); A41.9 Sepsis, unspecified organism; G92 Toxic encephalopathy; K56.0 Paralytic ileus; G20 Parkinson's disease; E03.9 Hypothyroidism, unspecified; Z51.5 Encounter for palliative care; H91.90 Unspecified hearing loss, unspecified ear; Z87.891 Personal history of nicotine dependence; Z66 Do not resuscitate; Z20.828 Contact with and (suspected) exposure to other viral communicable diseases; G90.9 Disorder of the autonomic nervous system, unspecified; Z93.1 Gastrostomy status; F02.80 Dementia in other diseases classified elsewhere, unspecified severity, without behavioral disturbance, psychotic disturbance, mood disturbance, and anxiety; I10 Essential (primary) hypertension; E87.6 Hypokalemia
CPT/HCPCS: 0202U; 0241U; 36415; 51702; 70450; 71045; 74177; 80048; 80053; 81001; 82330; 82947; 83605; 83690; 83735; 83880; 84484; 85025; 87040; 87077; 87086; 87186; 87493; 93005; 93010; 94760; 96361-59; 96365-59; 96366-59; 96367-59; 99285-25; J0295; J0456; J0696; J1650; J2060; J3480; J7030; J7050; Q9967